=== PATIENT | male | born 1960 | race Caucasian/White ===

== ENCOUNTER 2023-02-21 04:37 | Emergency (ER) | payer SELFPAY ==
[2023-02-21 07:18] VITALS: BP 00/00
--- NOTE | 2023-02-21 20:46 | EKG ---
[facility] [address] [place] [address] Signed Normal sinus rhythm Possible Left atrial enlargement Left ventricular hypertrophy ( R in aVL , Haugen product ) Prolonged QT Abnormal ECG No previous ECGs available Confirmed by Mike Vega MD () on 02/21/2023 8:45:56 PM Electronically Signed By: MIKE VEGA MD 02/21/232045 PATIENT NAME: ARAGONKAYCEE Electrocardiogram DATE OF : 58 PHYSICIAN: MIKE VEGA MD REPORT #: [id number] REPORT IS CONFIDENTIAL AND NOT TO BE RELEASED WITHOUT AUTHORIZATION
== END 2023-02-21 09:24 ==
LOC: ED 04:37
DX: I61.4 Nontraumatic intracerebral hemorrhage in cerebellum (principal); I60.9 Nontraumatic subarachnoid hemorrhage, unspecified; Z88.0 Allergy status to penicillin; Z20.822 Contact with and (suspected) exposure to COVID-19
CPT/HCPCS: 36415; 51702; 70450; 71045; 80053; 81001; 82803; 83605; 83880; 84484; 85025; 85379; 85610; 87040; 87502; 93005; 93010; 94002; 99285-25; C9803; G0480; J1953; J2704; J7060; J7121; U0003